=== PATIENT | female | born 1990 | race Caucasian/White ===

== ENCOUNTER 2016-06-08 08:35 | Outpatient (CLI) ==
[2015-11-24 02:37] VITALS: BMI 22.8
--- NOTE | 2016-06-08 10:19 | DI ---
EXAM: Radiographs, right foot HISTORY: Right foot pain and swelling. COMPARISON: None available. TECHNIQUE: Three views. FINDINGS: Bone mineralization is normal. There is no fracture or dislocation. The joint spaces ar e maintained. No focal soft tissue abnormality is seen. IMPRESSION: No abnormality of the right foot.
--- NOTE | 2016-06-08 10:19 | DI ---
EXAM: Radiographs, right ankle HISTORY: Right ankle pain and swelling. COMPARISON: None available. TECHNIQUE: Three views. FINDINGS: Bone mineralization is normal. There is no fracture or dislocation. The joint spaces ar e maintained. No focal soft tissue abnormality is seen. IMPRESSION: No abnormality of the right ankle.
== END 2016-06-08 08:36 | disposition home or self-care (01) ==
LOC: RAD 08:35
PROVIDERS: ATTEND Internal Medicine
DX: M25.571 Pain in right ankle and joints of right foot (principal); M79.89 Other specified soft tissue disorders

== ENCOUNTER 2016-09-08 10:31 | Outpatient (CLI) ==
[2015-11-24 02:37] VITALS: BMI 22.8
[2016-09-08 10:54] LABS: BASOPHILS % (AUTO) 0.2 % (0.0-3.0); EOSINOPHILS % (AUTO) 0.3 % (0.0-7.0); HEMATOCRIT 38.3 % (37.0-47.0); HEMOGLOBIN 13.1 g/dl (12.0-16.0); IMMATURE GRANULOCYTE % (AUTO) 0.4 % (0.0-5.0); LYMPHOCYTES # (AUTO) 2.5 K/uL (0.60-3.4); LYMPHOCYTES % (AUTO) 22.2 (10.0-50.0); MEAN CORPUSCULAR HEMOGLOBIN 28.7 pg (27.0-31.0); MEAN CORPUSCULAR HGB CONC 34.2 (31.8-35.4); MEAN CORPUSCULAR VOLUME 83.8 fl (81.0-99.0); MONOCYTES # (AUTO) 0.6 K/uL (0.4-2.0); MONOCYTES % (AUTO) 5.2 (0-10); NEUTROPHILS # (AUTO) 8.2 K/ul (2.0-6.9); NEUTROPHILS % (AUTO) 71.7; PLATELET COUNT 261 10^3/uL (140-440); RED BLOOD COUNT 4.57 10^6/ul (4.20-5.40); WHITE BLOOD COUNT 11.37 K/ul (4.6-10.2)
[2016-09-08 11:06] LABS: ALBUMIN 3.5 g/dL (3.4-5.0); ALBUMIN/GLOBULIN RATIO 1.17; ANION GAP 11.4; BILIRUBIN,TOTAL 0.36 mg/dL (0.00-1.20); BUN/CREATININE RATIO 14.66; CALCIUM 8.4 mg/dL (8.2-10.2); CREATININE 0.75 mg/dL (0.60-1.30); POTASSIUM 3.4 mmol/L (3.5-5.10); TOTAL PROTEIN 6.5 g/dL (6.4-8.2)
[2016-09-08 11:17] LABS: BILIRUBIN,URINE Negative (NEGATIVE); KETONES,URINE Negative (NEGATIVE); LEUKOCYTE ESTERASE ,URINE Negative (NEGATIVE); NITRITE,URINE Negative (NEGATIVE); PROTEIN,URINE Trace (NEGATIVE); URINE, BLOOD Trace-intact (NEGATIVE)
[2016-09-08 11:30] LABS: ADD URINE MICROSCOPIC YES
== END 2016-09-08 10:32 | disposition home or self-care (01) ==
LOC: LAB 10:31
PROVIDERS: ATTEND Emergency Medicine
DX: K52.9 Noninfective gastroenteritis and colitis, unspecified (principal)
CPT/HCPCS: 36415; 80053; 81001; 85025

== ENCOUNTER 2016-09-15 00:01 | Outpatient (POV) ==
[2015-11-24 02:37] VITALS: BMI 22.8
== END 2016-09-15 00:02 | disposition home or self-care (01) ==
LOC: OUTPT 00:01
PROVIDERS: ATTEND Otolaryngology
DX: H91.90 Unspecified hearing loss, unspecified ear (principal)
CPT/HCPCS: 92557; 92567

== ENCOUNTER 2016-11-09 11:02 | Outpatient (CLI) ==
[2015-11-24 02:37] VITALS: BMI 22.8
[2016-11-09 11:35] LABS: BASOPHILS % (AUTO) 0.2 % (0.0-3.0); EOSINOPHILS % (AUTO) 0.5 % (0.0-7.0); HEMATOCRIT 40.2 % (37.0-47.0); HEMOGLOBIN 13.5 g/dl (12.0-16.0); IMMATURE GRANULOCYTE % (AUTO) 0.4 % (0.0-5.0); LYMPHOCYTES # (AUTO) 2.7 K/uL (0.60-3.4); LYMPHOCYTES % (AUTO) 33.4 (10.0-50.0); MEAN CORPUSCULAR HEMOGLOBIN 28.3 pg (27.0-31.0); MEAN CORPUSCULAR HGB CONC 33.6 (31.8-35.4); MEAN CORPUSCULAR VOLUME 84.3 fl (81.0-99.0); MONOCYTES # (AUTO) 0.7 K/uL (0.4-2.0); MONOCYTES % (AUTO) 8.1 (0-10); NEUTROPHILS # (AUTO) 4.7 K/ul (2.0-6.9); NEUTROPHILS % (AUTO) 57.4; PLATELET COUNT 304 10^3/uL (140-440); RED BLOOD COUNT 4.77 10^6/ul (4.20-5.40); WHITE BLOOD COUNT 8.12 K/ul (4.6-10.2)
[2016-11-09 12:27] LABS: ALBUMIN 3.9 g/dL (3.4-5.0); ALBUMIN/GLOBULIN RATIO 1.03; ANION GAP 13.8; BILIRUBIN,TOTAL 0.38 mg/dL (0.00-1.20); BUN/CREATININE RATIO 22.35; CALCIUM 9.8 mg/dL (8.2-10.2); CHOL/HDL RATIO 3.4 (4.5-5.5); CREATININE 0.85 mg/dL (0.60-1.30); POTASSIUM 3.8 mmol/L (3.5-5.10); TOTAL PROTEIN 7.7 g/dL (6.4-8.2)
== END 2016-11-09 11:03 | disposition home or self-care (01) ==
LOC: LAB 11:02
PROVIDERS: ATTEND Internal Medicine
DX: R10.11 Right upper quadrant pain (principal); D64.9 Anemia, unspecified; I10 Essential (primary) hypertension; R53.83 Other fatigue; F41.1 Generalized anxiety disorder
CPT/HCPCS: 36415; 80053; 80061; 83036; 84443; 85025

== ENCOUNTER 2016-11-22 09:31 | Outpatient (CLI) ==
[2015-11-24 02:37] VITALS: BMI 22.8
--- NOTE | 2016-11-22 10:24 | US ---
EXAM: Right upper quadrant abdominal ultrasound. History: Right upper quadrant abdominal pain. Comparison: CT abdomen pelvis 11/24/2015 Technique: Multiple sonographic images through the abdomen were obtained. Color duplex Doppler was used to interrogate vascular flow. Findings: The visualized pancreas demonstrates no gross abnormality. No abdominal ascites. The liver is not enlarged according to the sonographic measurement given. No focal liver lesions identified sonograp hically. There is antegrade flow within the main portal vein. The periportal echoes within the larry er are maintained. Limited visualization of the right kidney demonstrates no evidence for hydroneph rosis. No shadowing gallstones. Gallbladder wall is not thickened. Common bile duct measures 0.3 cm in ca liber. Impression: Unremarkable exam.
== END 2016-11-22 09:32 | disposition home or self-care (01) ==
LOC: RAD 09:31
PROVIDERS: ATTEND Internal Medicine
DX: R10.11 Right upper quadrant pain (principal)

== ENCOUNTER 2016-11-24 23:58 | Emergency (ER) ==
[2016-11-24 23:59] VITALS: BMI 22.8
[2016-11-25 00:23] VITALS: BP 131/86; TEMP 98.7
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
[2016-11-25 01:15] LABS: HIV INTERNAL QC INTERNAL QC VALID; HIV-1 p24 ANTIGEN SCREEN NEGATIVE (NEGATIVE); HIV-1/2 ANTIBODY SCREEN NEGATIVE (NEGATIVE)
[2016-11-25] MEDS ORDERED: NEXT CHOICE ONE DOSE PO STA (03:50)
[2016-11-25 11:04] LABS: BILIRUBIN,URINE Negative (NEGATIVE); KETONES,URINE Negative (NEGATIVE); LEUKOCYTE ESTERASE ,URINE Negative (NEGATIVE); NITRITE,URINE Negative (NEGATIVE); PH,URINE 6.5 (5-9); PROTEIN,URINE Negative (NEGATIVE); URINE, BLOOD Negative (NEGATIVE)
[2016-11-25 11:05] LABS: URINE PREGNANCY INTERNAL QC INTERNAL QC VALID
[2016-11-25 11:07] LABS: ADD URINE MICROSCOPIC NO
== END 2016-11-25 08:55 | disposition home or self-care (01) ==
LOC: ED 23:58
DX: T74.21XA Adult sexual abuse, confirmed, initial encounter (principal)
CPT/HCPCS: 36415; 80074; 81001; 81025; 86592; 87800; 99285

== ENCOUNTER 2017-04-12 09:58 | Emergency (ER) ==
[2017-04-12 10:13] VITALS: BP 142/76; TEMP 97.6; BMI 23.1
[2017-04-12 11:05] LABS: URINE PREGNANCY INTERNAL QC INTERNAL QC VALID
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
--- NOTE | 2017-04-12 11:34 | CT ---
EXAM: CT cervical spine without contrast. HISTORY: Neck pain COMPARISON: None TECHNIQUE: Serial axial images of the cervical spine were obtained from the skull base through the l sj apices without contrast. These were viewed in multiple planes. FINDINGS: There is straightening of the cervical spine. There is no lytic or blastic lesion. The f acets and posterior processes are normal. Vertebral body height and disc spacing are maintained. Th e odontoid process is unremarkable. The C1 ring is intact. The soft tissues demonstrate few scatter ed cervical lymph nodes which are nonpathologically enlarged. The lung apices are clear. IMPRESSION: 1. No acute compression fracture or subluxation of the cervical spine. 2. Straightening of the cervical spine may represent positioning versus muscle spasm.
== END 2017-04-12 11:49 | disposition home or self-care (01) ==
LOC: ED 09:58
DX: M54.2 Cervicalgia (principal); V49.9XXA Car occupant (driver) (passenger) injured in unspecified traffic accident, initial encounter
CPT/HCPCS: 81025; 99283

== ENCOUNTER 2017-04-28 08:53 | Emergency (ER) ==
[2017-04-28 08:54] VITALS: BMI 22.8
[2017-04-28 09:02] VITALS: BP 140/100; TEMP 97.2
== END 2017-04-28 10:30 | disposition left against medical advice (07) ==
LOC: ED 08:53
DX: R51 Headache (principal)

== ENCOUNTER 2017-12-02 11:17 | Outpatient (CLI) | END 2017-12-02 11:18 | disposition home or self-care (01) | LOC: LAB 11:17 | PROVIDERS: ATTEND Internal Medicine | DX: D64.9 Anemia, unspecified (principal); I10 Essential (primary) hypertension; F41.9 Anxiety disorder, unspecified | CPT/HCPCS: 36415; 80053; 80061; 83036; 84436; 84443; 85025 ==

== ENCOUNTER 2018-08-21 15:48 | Outpatient (CLI) ==
--- NOTE | 2018-08-21 16:36 | DI ---
EXAM: LEFT ELBOW HISTORY: Elbow pain FINDINGS: Left elbow three-view. Bone and joint structures appear normal. There is no joint disloc ation or effusion. No fracture is identified. Bone density and soft tissues are within normal limit s. IMPRESSION: Findings within normal limits.
--- NOTE | 2018-08-21 16:37 | DI ---
EXAM: Lumbar spine three view HISTORY: Pain COMPARISON: None TECHNIQUE: Three views lumbar spine were performed FINDINGS: L1 partially excluded from view on the lateral view. Sacroiliac joints intact. Sacral arc uate intact. Vertebral bodies normal height. No fracture or subluxation. Intervertebral disc space s maintained. IMPRESSION: No fracture or subluxation.
--- NOTE | 2018-08-21 16:38 | DI ---
EXAM: Cervical spine three view HISTORY: Pain COMPARISON: CT 04/12/2017 TECHNIQUE: Three views cervical spine performed FINDINGS: C7 partially obscured on the lateral view. Straightening of the normal cervical lordosis. Vertebral bodies normal height. No fracture. No subluxation. Intervertebral disc spaces maintain ed. Vertebral soft tissues appear normal. IMPRESSION: 1. No fracture or subluxation. 2. Straightening of the normal cervical lordosis.
== END 2018-08-21 15:49 | disposition home or self-care (01) ==
LOC: LAB 15:48
PROVIDERS: ATTEND Internal Medicine
DX: M54.5 Low back pain (principal); M54.2 Cervicalgia; M25.522 Pain in left elbow; I10 Essential (primary) hypertension; F41.9 Anxiety disorder, unspecified
CPT/HCPCS: 36415; 80053; 80061; 83036; 84443; 85025